=== PATIENT | female | born 1980 | race Caucasian/White ===

== ENCOUNTER 2019-03-19 06:05 | Inpatient (IN) | payer OTHER ==
--- NOTE | 2019-03-18 11:34 | P.HPOB ---
History of Present Illness H&P Date: 03/18/19 Chief Complaint: Induction of labor This is a 38-year-old female 4 para 2 with an estimated date of confinement of 03/21/2019, estimated gestational age of 39-5/7 weeks, who presents to labor and delivery for induction of labor secondary to advanced maternal age. Her first was delivered with a delivery due to failure to progress and she did have a successful vaginal after with her second child. She is aware of the risks of vaginal after delivery and increased risk with induction of labor. She wishes to proceed with induction of labor with internal monitoring. She has been doing twice weekly nonstress test due to advanced maternal age. Her latest ultrasound at 35 weeks' did show bilateral dilated kidneys will be followed with pediatrics after delivery. Good fluid was noted at that time. labs: Hepatitis B surface antigen-negative RPR-nonreactive Rubella-nonimmune Blood type-A- Antibody screen-negative Hemoglobin-12.5 Toxoplasma screen-negative Random glucose-89 One hour Glucola-124 RhoGAM given at 28 weeks Group B streptococcus-negative Obstetrical history: . Her first delivery was a primary section for occiput posterior lie and failure to progress. That weighed 8 lbs. 1 oz. Her second was a successful vaginal after and that child weighed 6 lbs. 11 oz. She also has 1 termination of . Gynecologic history: History of herpes with outbreaks 1-2 times a year. No recent outbreaks. 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 Review of Systems Constitutional: Denies chills, Denies fever Eyes: denies blurred vision, denies pain Ears, nose, mouth and throat: Denies headache, Denies sore throat Cardiovascular: Denies chest pain, Denies shortness of breath Respiratory: Denies cough Gastrointestinal: Reports abdominal pain (Irregular contractions) Genitourinary: Reports pelvic pain, Reports Musculoskeletal: Reports low back pain Integumentary: Denies pruritus, Denies rash Neurological: Denies numbness, Denies weakness Psychiatric: Denies anxiety, Denies depression Past Medical History Past Medical History: No Reported History Past Surgical History: Section Additional Past Surgical History / Comment(s): Dilation and curettage Past Anesthesia/Blood Transfusion Reactions: No Reported Reaction Past Psychological History: No Psychological Hx Reported Smoking Status: Never smoker Past Alcohol Use History: None Reported Past Drug Use History: None Reported - Past Family History Mother Family Medical History: Diabetes Mellitus, Hypertension Medications and Allergies Home Medications Medication Instructions Recorded Confirmed Type Acyclovir [Zovirax] 800 mg PO TID PRN 03/18/19 03/18/19 History Pedi Multivit No.25/Folic Acid 2 tab PO DAILY 03/18/19 03/18/19 History [Flintstones Multivit Chew Tab] Allergies Allergy/AdvReac Type Severity Reaction Status Date / Time No Known Allergies Allergy Verified 03/18/19 11:31 Exam Osteopathic Statement: *. No significant issues noted on an osteopathic structural exam other than those noted in the History and Physical/Consult. HEENT: Within normal limits Heart: Regular rate and rhythm Lungs: Clear to auscultation bilaterally Abdomen: Cervix: 2-1/2 cm/70%/-1 station heart tones: Reactive Extremities: Negative Homans Assessment and Plan (1) 39 weeks gestation of Status: Acute Code(s): Z3A.39 - 39 WEEKS GESTATION OF SNOMED Code(s): 56614605 (2) Advanced maternal age (AMA) in Status: Acute Code(s): NXV6680 - SNOMED Code(s): 301344384 (3) Previous delivery affecting Status: Acute Code(s): O34.219 - MATERNAL CARE FOR UNSP TYPE SCAR FROM PREVIOUS DEL SNOMED Code(s): 364302228 Plan: Proceed with oxytocin induction of labor. Will place internal monitors due to history of previous section. Careful monitoring of intra-abdominal pressures. Expectant management.
[2019-03-19] MEDS ORDERED: TERBUTALINE 1 MG/ML VIAL SQ PRN (06:17)
[2019-03-19] MEDS ORDERED: CARBOPROST TROMETHAMINE 250 MCG/ML 1 ML AMP IM PRN (06:17)
[2019-03-19] MEDS ORDERED: LIDOCAINE 0.5% (PF) 5 MG/ML (50 ML SDV) SQ PRN (06:17)
[2019-03-19] MEDS ORDERED: METHYLERGONOVINE 0.2 MG/ML 1 ML AMP IM PRN (06:17)
[2019-03-19] MEDS ORDERED: LIDOCAINE 1% 20 ML VIAL (10MG/ML) FOR IV START INTRADERMA PRN (06:17)
[2019-03-19] MEDS ORDERED: OXYTOCIN 10 UNIT/ML 1 ML VIAL IM PRN (06:17)
[2019-03-19] MEDS ORDERED: OXYTOCIN 30 UNITS/500 ML NS 30 UNIT in SALINE 1 500ML.BAG IV SCH (06:17)
[2019-03-19 06:24] VITALS: BMI 23.6
[2019-03-19] MEDS: LACTATED RINGERS 1,000 ML IV SCH ×3 (06:50→13:14)
[2019-03-19 07:59] LABS: Basophils # (A) 0.2 k/uL (0-0.2); Basophils % (A) 2 %; Eosinophils # (A) 0.4 k/uL (0-0.7); Eosinophils % (A) 4 %; HCT 33.2 % (34.0-46.0); HGB 11.3 gm/dL (11.4-16.0); Lymphocytes # (A) 1.6 k/uL (1.0-4.8); Lymphocytes % (A) 17 %; MCH 33.3 pg (25.0-35.0); MCV 97.9 fL (80.0-100.0); Mean Platelet Volume 7.4; Monocytes # (A) 0.6 k/uL (0-1.0); Monocytes % (A) 6 %; Neutrophils # (A) 6.5 k/uL (1.3-7.7); Neutrophils % (A) 69 %; Platelet Count 279 k/uL (150-450); RDW 13.3 % (11.5-15.5); WBC 9.4 k/uL (3.8-10.6)
[2019-03-19] MEDS ORDERED: ROPIVACAINE 5MG/ML 20ML VIAL ONE (10:36)
[2019-03-19] MEDS ORDERED: SODIUM CHLORIDE 0.9% 100 ML BAG ONE (10:36)
[2019-03-19] MEDS ORDERED: fentaNYL (PF) 50 MCG/ML 5 ML AMP ONE (10:36)
[2019-03-19] MEDS ORDERED: IBUPROFEN 600 MG TAB PO PRN (15:34)
[2019-03-19] MEDS ORDERED: ZOLPIDEM 5 MG TAB PO PRN (15:34)
[2019-03-19] MEDS ORDERED: HYDROCORTISONE 2.5% RECTAL CREAM 30 GM TUBE RECTAL PRN (15:34)
[2019-03-19] MEDS ORDERED: ACETAMINOPHEN TAB 325 MG TAB PO PRN (15:34)
[2019-03-19] MEDS ORDERED: LANOLIN CREAM 5 GM TUBE TOPICAL PRN (15:34)
[2019-03-19] MEDS ORDERED: diphenhydrAMINE 50 MG/ML 1 ML VIAL IVP PRN ×2 (15:34)
[2019-03-19] MEDS ORDERED: diphenhydrAMINE 25 MG CAP PO PRN (15:34)
[2019-03-19] MEDS ORDERED: SIMETHICONE 80 MG CHEWABLE PO PRN (15:34)
[2019-03-19] MEDS ORDERED: WITCH HAZEL 1 EACH MED..PAD TOPICAL PRN (15:34)
[2019-03-19] MEDS ORDERED: diphenhydrAMINE 50 MG CAP PO PRN (15:34)
[2019-03-19] MEDS ORDERED: OXYTOCIN 20 UNITS/1000 ML NS 1,000 ML IV SCH (15:34)
[2019-03-19] MEDS ORDERED: MEASLES-MUMPS-RUBELLA VACC/PF 12,500 UNIT/0.5 ML VIAL SQ ONE (15:34)
[2019-03-19] MEDS ORDERED: BENZOCAINE/MENTHOL SPRAY 1 GM/SPRAY AEROSOL TOPICAL PRN (15:34)
--- NOTE | 2019-03-19 17:22 | P.PROBDLV ---
Vaginal Delivery Note - . Vaginal Delivery Note: The patient progressed to complete dilation after oxytocin induction of labor and artificial rupture membranes with clear fluid noted. She did receive epidural anesthesia. Internal monitoring was used the entire time of her labor. Once reaching complete, she began pushing. 's head came to a crown. With one further push, the 's head delivered across the perineum followed by the anterior shoulder. Nose and mouth were bulb suctioned. Nuchal cord 2 w as doubly clamped and cut and reduced around the 's head. With one further push, the remainder the infant easily delivered and was placed on mother's abdomen. was then taken to warmer for evaluation by nursing staff and pediatrics. A viable female was noted with scores of 7 at 1 minute and 9 at 5 minutes and weight of 7 pounds 6.7 ounces. Placenta delivered approximately 20 minutes after delivery of the infant. After the placenta delivered, a gloved hand was placed and a few small pieces of membrane were removed separately. No further tissue was palpated. Uterus contracted well after oxytocin was given and uterine massage was carried out. Inspection of the perineum revealed no perineal lacerations. Estimated blood loss is approximately 100 mL's. Both mother and are in stable condition. This was a vaginal after section.
[2019-03-19] MEDS: SENNOSIDES-DOCUSATE SODIUM 1 EACH TAB PO SCH (21:27)
[2019-03-19] MEDS ORDERED: Rhogam IMMUNE GLOBULIN 1,500 UNIT/1 ML IM ONE (23:03)
[2019-03-20 09:33] LABS: Basophils # (A) 0.1 k/uL (0-0.2); Basophils % (A) 1 %; Eosinophils # (A) 0.3 k/uL (0-0.7); Eosinophils % (A) 2 %; HGB 11.8 gm/dL (11.4-16.0); Lymphocytes # (A) 1.4 k/uL (1.0-4.8); Lymphocytes % (A) 9 %; MCH 33.3 pg (25.0-35.0); MCHC 34.8 g/dL (31.0-37.0); MCV 95.6 fL (80.0-100.0); Mean Platelet Volume 7.8; Monocytes # (A) 0.7 k/uL (0-1.0); Monocytes % (A) 4 %; Neutrophils % (A) 83 %; Platelet Count 272 k/uL (150-450); RBC 3.56 m/uL (3.80-5.40); RDW 14.6 % (11.5-15.5); WBC 16.8 k/uL (3.8-10.6)
[2019-03-20] MEDS: SENNOSIDES-DOCUSATE SODIUM 1 EACH TAB PO SCH ×2 (10:38→20:02)
--- NOTE | 2019-03-20 11:58 | P.PNOBGVD ---
Subjective - Subjective Principal diagnosis: Status post normal vaginal delivery day #1 Interval history: Patient seen and examined. Denies nausea, vomiting, chest pain or shortness of breath or calf pain. Patient reports: Reports appetite normal, Reports voiding normally, Reports pain well controlled, Reports ambulating normally Objective - Latest Vital Signs Latest vital signs: Vital Signs Temp Pulse Resp BP 03/20/19 08:00 98.2 F 99 16 104/73 03/20/19 04:00 98.3 F 93 16 113/77 03/20/19 00:00 98.6 F 79 16 103/60 03/19/19 20:00 99.0 F 102 H 16 109/65 03/19/19 17:36 98.4 F 94 14 107/64 03/19/19 17:06 84 16 120/65 03/19/19 16:36 98 14 118/68 03/19/19 16:21 97.4 F L 93 14 116/67 03/19/19 16:06 90 16 112/60 03/19/19 15:47 14 128/65 03/19/19 15:36 98.3 F 86 16 106/68 Intake and Output 03/19/19 03/20/19 03/20/19 22:59 06:59 14:59 Other: # Voids 1 - Exam Lungs: bilateral: normal Chest: Normal S1, Normal S2 Extremities: Present: normal Abdomen: Present: normal appearance, soft Uterus: Present: normal, firm - Labs Labs: Abnormal Lab Results - Last 24 Hours (Table) 03/20/19 Range/Units 06:31 WBC 16.8 H (3.8-10.6) k/uL RBC 3.56 L (3.80-5.40) m/uL Neutrophils # 14.0 H (1.3-7.7) k/uL Assessment and Plan (1) Normal vaginal delivery Current Visit: Yes Status: Acute Code(s): O80 - ENCOUNTER FOR FULL-TERM UNCOMPLICATED DELIVERY SNOMED Code(s): 98737639 Plan: 1. Continue care
--- NOTE | 2019-03-21 09:34 | P.DS ---
Providers Date of admission: 03/19/19 06:05 Expected date of discharge: 03/21/19 Attending physician: Farhana Resendiz Primary care physician: Stated None - Discharge Diagnosis(es) (1) Normal vaginal delivery Current Visit: Yes Status: Acute Hospital Course: PT presented for induction of labor. She underwent a normal vaginal delivery. PP course was uncomplicated and she will be discharged home PPD #2 in stable condition to follow up with Dr Resendiz in 6 weeks. Plan - Discharge Summary New Discharge Prescriptions: New Ibuprofen [Motrin] 600 mg PO Q6HR PRN #30 tab PRN Reason: Mild Pain Or Fever >= 100.5 No Action Pedi Multivit No.25/Folic Acid [Flintstones Multivit Chew Tab] 2 tab PO DAILY Acyclovir [Zovirax] 800 mg PO TID PRN PRN Reason: outbreak Discharge Medication List Acyclovir [Zovirax] 800 mg PO TID PRN 03/18/19 [History] Pedi Multivit No.25/Folic Acid [Flintstones Multivit Chew Tab] 2 tab PO DAILY 03/18/19 [History] Ibuprofen [Motrin] 600 mg PO Q6HR PRN #30 tab 03/21/19 [Rx] Follow up Appointment(s)/Referral(s): Farhana Resendiz DO [Doctor of Osteopathic Medicine] - 6 Weeks Discharge Disposition: HOME SELF-CARE
[2019-03-21 10:44] VITALS: BP 106/70; PULSE 98; RESP 16; TEMP 98.3
[2019-03-21] MEDS: SENNOSIDES-DOCUSATE SODIUM 1 EACH TAB PO SCH (10:44)
== END 2019-03-21 16:05 | disposition home or self-care (01) | DRG 806 ==
LOC: 4FBP 06:05
PROVIDERS: ADMIT Obstetrics & Gynecology; ATTEND Obstetrics & Gynecology
PROC: 10E0XZZ Delivery of Products of Conception, External Approach (ICD-10-PCS; principal; 2019-03-19)
PROC: 00HU33Z Insertion of Infusion Device into Spinal Canal, Percutaneous Approach (ICD-10-PCS; 2019-03-19)
PROC: 3E0R3BZ Introduction of Anesthetic Agent into Spinal Canal, Percutaneous Approach (ICD-10-PCS; 2019-03-19)
PROC: 10907ZC Drainage of Amniotic Fluid, Therapeutic from Products of Conception, Via Natural or Artificial Opening (ICD-10-PCS; 2019-03-19)
PROC: 3E033VJ Introduction of Other Hormone into Peripheral Vein, Percutaneous Approach (ICD-10-PCS; 2019-03-19)
DX: O34.219 Maternal care for unspecified type scar from previous cesarean delivery (principal); O98.52 Other viral diseases complicating childbirth; Z37.0 Single live birth; O99.834 Other infection carrier state complicating childbirth; O69.81X0 Labor and delivery complicated by cord around neck, without compression, not applicable or unspecified; O99.52 Diseases of the respiratory system complicating childbirth; O99.62 Diseases of the digestive system complicating childbirth; Z22.8 Carrier of other infectious diseases; Z3A.39 39 weeks gestation of pregnancy; Z82.49 Family history of ischemic heart disease and other diseases of the circulatory system; Z83.3 Family history of diabetes mellitus
CPT/HCPCS: 85025; 85461; 86850; 86870; 86880; 86900; 86901; 90707

== ENCOUNTER 2022-11-04 06:40 | Day surgery (SDC) | payer OTHER ==
[2022-11-02 12:36] VITALS: BMI 23.0
--- NOTE | 2022-11-03 22:01 | P.HPOB ---
History of Present Illness H&P Date: 11/03/22 Chief Complaint: Recurrentl low grade squamous intraepithelial lesion of cervix This is a 42 y.o. female, 5, para 3, who presents for colposcopy with loop electrocautry excision procedure due to recurrent low grade squamous intraepithelial lesion of the cervix on pap smear with confirmed BRITTON 1 on colposcopy. She has been treated with cryocautery twice in the past. OB Hx: . 1 and 2 vaginal deliveries. 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 Social Hx: . Works in [email or web address]. Review of Systems Constitutional: Reports night sweats, Denies chills, Denies fever Eyes: denies blurred vision, denies pain Ears, nose, mouth and throat: Denies headache, Denies sore throat Cardiovascular: Denies chest pain, Denies shortness of breath Respiratory: Denies cough Gastrointestinal: Denies abdominal pain, Denies diarrhea, Denies nausea, Denies vomiting Genitourinary: Denies dysuria, Denies hematuria Menstruation: Reports menses 1-7 days Musculoskeletal: Denies myalgias Integumentary: Denies pruritus, Denies rash Neurological: Denies numbness, Denies weakness Psychiatric: Denies anxiety, Denies depression Past Medical History Past Medical History: No Reported History Additional Past Medical History / Comment(s): ABNORMAL PAP History of Any Multi-Drug Resistant Organisms: None Reported Past Surgical History: Section Additional Past Surgical History / Comment(s): wisdom tooth extraction. COLPOSCOPY X2 Past Anesthesia/Blood Transfusion Reactions: No Reported Reaction Past Psychological History: No Psychological Hx Reported Smoking Status: Never smoker Past Alcohol Use History: Occasional Past Drug Use History: None Reported - Past Family History Mother Family Medical History: Diabetes Mellitus, Hypertension Medications and Allergies Home Medications Medication Instructions Recorded Confirmed Type Acyclovir [Zovirax] 800 mg PO TID PRN 03/18/19 11/04/22 History Allergies Allergy/AdvReac Type Severity Reaction Status Date / Time No Known Allergies Allergy Verified 11/04/22 06:59 Exam Osteopathic Statement: *. No significant issues noted on an osteopathic structural exam other than those noted in the History and Physical/Consult. HEENT: within normal limits Heart: regular rate and rhythm Lungs: clear to auscultation bilaterally Abdomen: soft, non-tender Pelvic: uterus anteverted, non-tender, no adnexal masses or tenderness. Extremities: neg. Isac's Assessment and Plan (1) Low grade squamous intraepith lesion on cytologic smear cervix (lgsil) Current Visit: No Status: Acute Code(s): R87.612 - LOW GRADE INTREPITH LESION CYTO SMR CRVX (LGSIL) SNOMED Code(s): 292322076 (2) BRITTON I (cervical intraepithelial neoplasia I) Current Visit: No Status: Acute Code(s): N87.0 - MILD CERVICAL DYSPLASIA SNOMED Code(s): 232085622 Plan: Proceed with colposcopy with loop electrocautery excision procedure. I have discussed the risks, benefits, and alternative therapies for the above- mentioned procedure and for both sedation/anesthesia as well as necessary blood products administration, if indicated, as they pertain to this patient. The patient has indicated her understanding and acceptance of the risks and procedures discussed.
[~2022-11-04 06:40] MED LIST: DEXAMETHASONE SOD PHOSPHATE 4 MG/ML 1 ML VIAL IV ONE; HYDROmorphone 0.5 MG/0.5 ML SYRINGE IVP PRN; LACTATED RINGERS 1,000 ML IV SCH; ONDANSETRON 4 MG/2 ML VIAL IVP ONE; Pre Op ABX Message 1 EACH MISC MISCELLANE ONE
[2022-11-04] MEDS ORDERED: SCOPOLAMINE 1 MG/72 HR PATCH TRANSDERM ONE (07:18)
[2022-11-04] MEDS ORDERED: fentaNYL (PF) 50 MCG/ML 2 ML AMP ONE (07:50)
[2022-11-04] MEDS ORDERED: KETOROLAC 30 MG/ML 1 ML VIAL ONE (07:50)
[2022-11-04] MEDS ORDERED: MIDAZOLAM 2 MG/2 ML VIAL ONE (07:50)
[2022-11-04] MEDS ORDERED: LIDOCAINE 2% INJ 20 MG/ML (2 ML VIAL) ONE (07:50)
[2022-11-04] MEDS ORDERED: PROPOFOL 10 MG/ML 20 ML VIAL IV ONE (07:50)
[2022-11-04] MEDS ORDERED: FERRIC SUBSULFATE (MONSELS) JAR TOPICAL ONE (08:14)
[2022-11-04] MEDS ORDERED: ACETIC ACID 15 DROPS/ML DROPS MISCELLANE ONE (08:15)
[2022-11-04] MEDS ORDERED: IODINE/POTASSIUM IODIDE 14 ML BOTTLE TOPICAL ONE (08:17)
[2022-11-04] MEDS ORDERED: LIDOCAINE 2% INJ 20 MG/ML SQ ONE (08:19)
--- NOTE | 2022-11-04 08:35 | P.OP ---
Date of Procedure: 11/04/22 Preoperative Diagnosis: Recurrent low-grade squamous intraepithelial lesion of the cervix Recurrent BRITTON-1 Postoperative Diagnosis: Same Procedure(s) Performed: Colposcopy with loop electrocautery excision procedure Anesthesia: BRODERICK Surgeon: Farhana Resendiz Estimated Blood Loss (ml): 10 Pathology: other (Ectocervix with 12 o'clock position marked with a black suture, separate piece is endocervix) Condition: stable Disposition: same day Indications for Procedure: This is a 42 y.o. female, 5, para 3, who presents for colposcopy with loop electrocautry excision procedure due to recurrent low grade squamous intraepithelial lesion of the cervix on pap smear with confirmed BRITTON 1 on colposcopy. She has been treated with cryocautery twice in the past. Operative Findings: No visualized abnormalities are seen with 3% acetic acid. There is a small Lugol white area at approximately 2:00 border. Transition zone is not seen entirely as it appears to be more internal. Description of Procedure: The patient is taken to operating room where she is placed in the dorsal lithotomy position. She is prepped and draped in the normal sterile fashion. A coated bivalve speculum was placed in the patient's vagina. Colposcopy was performed using a blue light. Cervix was wiped with 3% acetic acid solution. No specific abnormalities are visualized. The cervix is then swabbed with Lugol's solution. A very small Lugol white area was noted around the 2:00 border. Transition zone is not seen entirely as it is more internal. Next the cervix was circumferentially injected with 2% lidocaine without epinephrine. Approximately 9 mL are used to inject circumferentially using a spinal needle. Next a large loop was used to swipe from left to right using 35 W of cutting power to remove the ectocervix. This pieces marked at the 12 o'clock position with a suture. Next the small loop is used to excise the endocervix. Next a ball-tipped cautery is used to cauterize the bed left behind. Once adequate hemostasis as noted, on cell solution is applied. Excellent hemostasis is noted. All instruments and sponges are removed from the field. All sponge counts are correct. All needle counts are correct. Patient is then taken to recovery room in stable condition.
[2022-11-04 08:49] VITALS: TEMP 97.6
[2022-11-04 09:28] VITALS: RESP 16
[2022-11-04 10:04] VITALS: BP 107/72; PULSE 69
== END 2022-11-04 10:33 | disposition home or self-care (01) ==
LOC: OR 06:40
PROVIDERS: ATTEND Obstetrics & Gynecology
DX: R87.610 Atypical squamous cells of undetermined significance on cytologic smear of cervix (ASC-US) (principal); Z98.890 Other specified postprocedural states; F10.20 Alcohol dependence, uncomplicated
CPT/HCPCS: 57461; 81025; J2001 ×2; J2250; J1100; J2405; J3010; J1885; J2704; 88307

== ENCOUNTER → 2023-12-30 | Outpatient (CLI) | payer BC ==
--- NOTE | 2024-01-02 10:11 | MM ---
Reason for Exam: Screening (asymptomatic). Baseline mammogram. Patient History: Menarche at age 12. First Full-Term at age 23. Patient has history of breast feeding. Patient used Hormonal Contraceptives for 2 years. Last menstrual period: 12/24/2023 Risk Values: Judi 5 year model risk: 0.7%. NCI Lifetime model risk: 8.7%. Prior Study Comparison: Patient's first Mammogram. Tissue Density: The breasts are heterogeneously dense, which may obscure small masses. Findings: Analyzed By CAD. Right breast: There is no suspicious group of microcalcifications or new suspicious mass. Left breast: Asymmetry left breast posterior depth and lateral views 6.7 cm from the nipple measuring 7 mm. Overall Assessment: Incomplete: need additional imaging evaluation, BI-RAD 0 Management: Diagnostic Mammogram of the left breast. [facility] will attempt to contact patient to return for supplemental views and ultrasound if indicated. Patient should continue monthly self-breast exams. A clinical breast exam by your physician is recommended on an annual basis. This exam should not preclude additional follow-up of suspicious palpable abnormalities. Note on Judi scores and lifetime risk: 1. A Judi score greater than 3% is considered moderate risk. If this is the case, consider specialist referral to assess eligibility for a risk reducing agent. 2. If overall lifetime risk for the development of breast cancer is 20% or higher, the patient may qualify for future screening with alternating mammogram and breast MRI. Electronically signed and approved by: Tanner Mancera DO
== END | disposition home or self-care (01) ==
LOC: RADMAMWWP 13:01
PROVIDERS: ATTEND Internal Medicine
DX: Z12.31 Encounter for screening mammogram for malignant neoplasm of breast (principal)
CPT/HCPCS: 77067

== ENCOUNTER → 2024-01-06 | Outpatient (CLI) | payer BC ==
--- NOTE | 2024-01-06 07:43 | MM ---
Reason for Exam: Additional evaluation requested from abnormal screening. Last screening mammogram was performed less than 1 month ago. Patient History: Menarche at age 12. First Full-Term at age 23. Premenopausal. Patient has history of breast feeding. Patient used Hormonal Contraceptives for 2 years. Risk Values: Judi 5 year model risk: 0.7%. NCI Lifetime model risk: 8.7%. Prior Study Comparison: 12/30/2023 Bilateral MG screening mammo w CAD, [facility]. Tissue Density: Left: The breasts are extremely dense, which lowers the sensitivity of mammography. Findings: Analyzed By CAD. On the mediolateral compression. There may be some vague subluxation the posterior left breast. Collateral compressions and mediolateral oblique projections disburse parenchymal tissue. No suspicious groups of microcalcifications, spiculated or lobular masses, architectural distortion or other secondary signs of malignancy are mammographically apparent. Overall Assessment: Probably benign, BI-RAD 3 Management: Diagnostic Mammogram of the left breast in 6 months. A negative mammogram report should not preclude additional follow up of suspicious palpable abnormalities. Patient should continue monthly self breast exam. A clinical breast exam by your physician is recommended on an annual basis and results should be correlated with mammographic findings. Note on Judi scores and lifetime risk: 1. A Judi score greater than 3% is considered moderate risk. If this is the case, consider specialist referral to assess eligibility for a risk reducing agent. 2. If overall lifetime risk for the development of breast cancer is 20% or higher, the patient may qualify for future screening with alternating mammogram and breast MRI. Electronically signed and approved by: Sven Cantrell D.O. Radiologis
== END | disposition home or self-care (01) ==
LOC: RADMAMWWP 06:56
PROVIDERS: ATTEND Internal Medicine
DX: R92.342 Mammographic extreme density, left breast (principal); R92.8 Other abnormal and inconclusive findings on diagnostic imaging of breast
CPT/HCPCS: 77061; 77065

== ENCOUNTER → 2024-07-11 | Outpatient (CLI) | payer BC ==
--- NOTE | 2024-07-11 08:06 | MM ---
Reason for Exam: Follow-up at short interval from prior study. Last screening mammogram was performed 6 month(s) ago. Patient History: Menarche at age 12. First Full-Term at age 23. Premenopausal. Patient has history of breast feeding. Patient used Hormonal Contraceptives for 2 years. Risk Values: Judi 5 year model risk: 0.7%. NCI Lifetime model risk: 8.6%. Prior Study Comparison: 12/30/2023 Bilateral MG screening mammo w CAD, [facility]. 01/06/2024 Left MG 3D work up w/cad LT, [facility]. Tissue Density: Left: The breasts are extremely dense, which lowers the sensitivity of mammography. Findings: Analyzed By CAD. No suspicious new focal mass or worrisome cluster of microcalcification in the left breast. Overall Assessment: Negative, BI-RAD 1 Management: Screening Mammogram of both breasts in 6 months. Return to routine follow-up. Some advise bilateral breast ultrasound surveillance in patients with background extreme dense tissue. Results were given to the patient verbally at the time of exam. Patient should continue monthly self-breast exams. A clinical breast exam by your physician is recommended on an annual basis. This exam should not preclude additional follow-up of suspicious palpable abnormalities. Note on Judi scores and lifetime risk: 1. A Judi score greater than 3% is considered moderate risk. If this is the case, consider specialist referral to assess eligibility for a risk reducing agent. 2. If overall lifetime risk for the development of breast cancer is 20% or higher, the patient may qualify for future screening with alternating mammogram and breast MRI. [facility], , 07/11/2024 8:03 AM. Electronically signed and approved by: Byron Dale M.D.
== END | disposition home or self-care (01) ==
LOC: RADMAMWWP 07:29
PROVIDERS: ATTEND Internal Medicine
DX: R92.8 Other abnormal and inconclusive findings on diagnostic imaging of breast (principal); R92.342 Mammographic extreme density, left breast
CPT/HCPCS: 77061; 77065